=== PATIENT | male | born 1965 | race Caucasian/White ===

== ENCOUNTER 2016-05-19 11:53 | Emergency (ER) | payer MEDICAID ==
[~2016-05-19] VITALS: Wt 72.9 kg
[2016-05-19] MEDS ORDERED: CEFAZOLIN 1 GM INJ IM ONE (13:00)
[2016-05-19] MEDS ORDERED: DIPHTH/TET/ACEL PERTUSS (ADULT) 0.5 ML VIAL IM* ONE (13:00)
[2016-05-19] MEDS: HYDROCODONE/APAP (10/325) TAB PO ONE ×2 (13:17→13:21)
--- NOTE | 2016-05-19 13:26 | RADRPT ---
PROCEDURE: Left Tibia/Fibula series CLINICAL INDICATION: metal FB distal. Pain TECHNIQUE: 2 views. COMPARISON: None FINDINGS: No fractures are noted. No lesions are visualized. The soft tissues are unremarkable. Curve metallic foreign body measuring at least 48 mm in length is noted in the medial soft tissues o f the left calf IMPRESSION: 1. No bony abnormalities are identified. 2. Metallic foreign body. RPTAT: HH .Anam Scott MD, MD Date Time Electronically viewed and signed by .Anam Scott MD, MD on 05/19/2016 13:26 .G/
[2016-05-19] MEDS ORDERED: ACETAMINOPHEN 500 MG TAB PO STA (13:30)
--- NOTE | 2016-05-19 13:38 | ERD ---
ER Documentation Chief Complaint Date/Time DATE: 05/19/16 TIME: 13:32 Chief Complaint left calf puncture wound from metal piece. implanted in leg HPI This is a 51-year-old male that presents to the emergency department with a foreign body to his left lower extremity. The patient was at work and indicated that there was a piece of metal that had fallen and landed into his left lower extremity. The patient is unaware of when his last tetanus toxoid update was given. He indicates he has no numbness or tingling of his left lower extremity and that the pain is 6 out of 7 in intensity. The patient indicated there is a minimal amount of bleeding that was able to control with applying a sock tourniquet. ROS All systems reviewed and are negative except as per history of present illness. Medications Home Meds No Active Prescriptions or Reported Meds Allergies Allergies: Coded Allergies: No Known Allergy (Unverified , 05/19/16) Physical Exam Vitals Vital Signs Date Time Temp Pulse Resp B/P Pulse Ox O2 Delivery O2 Flow Rate FiO2 05/19/16 11:56 98.5 84 20 160/84 98 Physical Exam Constitutional:Well-developed. Well-nourished. HEENT:Normocephalic. Atraumatic.Pupils were equal round reactive to light. Moist mucous membranes.No tonsillar exudates. Neck: No nuchal rigidity. No lymphadenopathy. No posterior cervical spine tenderness or step-offs. Respiratory: Not using accessory muscles of respiration.Lungs were clear to auscultation bilaterally. No rhonchi. No rales. No wheezing. Cardiovascular: Regular rate regular rhythm.No murmurs. No rubs were appreciated.S1, S2 normal. Distal pulses are palpable 2+ bilaterally. Muscle skeletal: Full range of motion of both the upper and lower extremities bilaterally.Normal muscle tone.No assymetrical calf tenderness or swelling. Skin: No petechia, no purpura. No lesions on the palms or the soles of the feet. No maculopapular rash. Metal foreign body protruding from the distal third of the left lower extremity. Hemostasis controlled. No surrounding tenderness erythremia warmth fluctuance or induration NEURO: Patient was alert, awake, orientated x3.No facial droop. Gait observed and normal with no ataxia.Speech had regular rate and rhythm. No focal neurological deficits. Results 24 hrs Current Medications Medications (Trade) Dose Ordered Sig/Eladia Route PRN Reason Start Time Stop Time Status Last Admin Dose Admin Diphtheria/ Tetanus/Acell Pertussis (Adacel) 0.5 ml ONCE ONCE IM* 05/19/16 13:00 05/19/16 13:01 DC 05/19/16 13:18 Cefazolin Sodium (Ancef) 1 gm ONCE ONCE IM 05/19/16 13:00 05/19/16 13:01 DC 05/19/16 13:17 Acetaminophen/ Hydrocodone Bitart (Lindsay (10/325)) 1 tab ONCE ONCE PO 05/19/16 13:00 05/19/16 13:31 DC Acetaminophen (Tylenol Tab) 1,000 mg ONCE STAT PO 05/19/16 13:30 05/19/16 13:31 DC Procedures/MDM This patient presented to the emergency department with a foreign body to the left lower extremity. I obtained radiographic imaging, 2 views of the left tib- fib which indicated a foreign body present. The patient did not appear to have any vascular injury as hemostasis was controlled. The patient was given a tetanus toxoid update. Tylenol was given for analgesia control. Procedure note: The middle foreign body was able to be removed by myself. The patient refused local anesthetic control. Using pliers the foreign body was completely removed. Post radiographic imaging indicated there is no presence of the foreign body that had been retained. The wound was irrigated using high- pressure normal saline. Steri-Strips were applied to the puncture wound. Hemostasis controlled. Patient was given prophylactic antibiotics of IM Ancef The patient was discharged home in fair condition. They were instructed to return to the emergency department at any time if there was any worsening of their condition. The patient stated they would follow up with their PCP in the next 24-48 hours to initiate a suitable medication regimen under the care of their PCP as well as to allow their PCP to monitor any drug reactions. The patient was discharged home with prescriptions after they gave informed consent to the new medication. They were also fully informed by myself on the adverse effects and adverse drug interactions in order to provide adequate safeguards to prevent possible adverse reactions to medications. Departure Diagnosis: Primary Impression: Puncture wound Additional Impression: Hx of retained foreign body fully removed Condition: Fair WESLEY CONTRERAS May 19, 2016 13:38
[2016-05-19] MEDS ORDERED: CEPH-443 PO (13:39)
[2016-05-19] MEDS ORDERED: STERILE WATER 1L IRRIG BTL IRR STA (13:40)
--- NOTE | 2016-05-19 13:54 | RADRPT ---
PROCEDURE: XR left tibia/fibula. CLINICAL INDICATION: Leg pain /removal of foreign body TECHNIQUE: Two views available for review. COMPARISON: None available FINDINGS: 48 mm length curvilinear metallic foreign body has been removed. No other metallic foreign body is identified. The osseous structures are normal in mineralization, architecture and alignment. No fractures are i dentified. No osseous lesions are identified. The joints are unremarkable. The soft tissues are u nremarkable. IMPRESSION: Removal of 48 mm length curvilinear metallic foreign body RPTAT: HGDB .Anam Wong MD, MD Date Time Electronically viewed and signed by .Anam Wong MD, on 05/19/2016 13:54 .B/
[2016-05-19 14:34] VITALS: BP 127/65; PULSE 75; RESP 19; TEMP 98.2
== END 2016-05-19 14:34 | disposition home or self-care (01) ==
LOC: E/R 11:53
DX: S81.842A Puncture wound with foreign body, left lower leg, initial encounter (principal); R40.2142 Coma scale, eyes open, spontaneous, at arrival to emergency department; R40.2252 Coma scale, best verbal response, oriented, at arrival to emergency department; R40.2362 Coma scale, best motor response, obeys commands, at arrival to emergency department; W45.8XXA Other foreign body or object entering through skin, initial encounter; Y92.89 Other specified places as the place of occurrence of the external cause; Z23 Encounter for immunization
CPT/HCPCS: 73590; 90471; 90715; 96372; A4217; J0690; Z7502; Z7610